=== PATIENT | female | born 1950 | race Caucasian/White ===

== ENCOUNTER 2019-07-13 08:14 | Day surgery (SDC) | payer MEDICARE ==
[~2019-07-13] VITALS: Ht 162.6 cm; Wt 67.1 kg
[~2019-07-13 08:14] MED LIST: ASPI81TA85 PO; COQ-100C5 PO; LIDOCAINE 2% INJ 100 MG/5 ML SDV (FOR ANES.) As Ordered ONE; LISI10TA4 PO; NS 1,000 ML IV ONE; PROPOFOL 500 MG/50 ML VIAL As Ordered ONE; ROSU10TA6 PO; VITA500T PO; fentaNYL 100 MCG/2 ML INJECTION (J3010) As Ordered ONE
--- NOTE | 2019-07-13 08:57 | ROOR ---
Patient Name: Radha Abreu Procedure Date: 07/13/2019 8:39 AM Date of : 1950 Age: 69 Room: [facility] Gender: Female Note Status: Finalized Procedure: Upper Endoscopy + Biopsies Indications: Heartburn, Exclusion of Pickard's esophagus Providers: Wolf Epstein MD Referring MD: Rey Whitman MD Requesting Provider: Medicines: Monitored Anesthesia Care Complications: No immediate complications. Procedure: Pre-Anesthesia Assessment: - The heart rate, respiratory rate, oxygen saturations, blood pressure, adequacy of pulmonary ventilation, and response to care were monitored throughout the procedure. The Endoscope was introduced through the mouth, and advanced to the second part of duodenum. The upper GI endoscopy was accomplished without difficulty. The patient tolerated the procedure well. Findings: The Z-line was regular and was found 40 cm from the incisors. Multiple biopsies were obtained with cold forceps for evaluation to rule out Pickard's Esophagus randomly at the gastroesophageal junction. Localized mildly erythematous mucosa without bleeding was found in the gastric antrum. Biopsies were taken with a cold forceps for Helicobacter pylori testing. The exam of the duodenum was otherwise normal. Impression: - Z-line regular, 40 cm from the incisors. - Erythematous mucosa in the antrum. Biopsied. - Multiple biopsies were obtained at the gastroesophageal junction. - The examination was otherwise normal. Recommendation: - Patient has a contact number available for emergencies. The signs and symptoms of potential delayed complications were discussed with the patient. Return to normal activities tomorrow. Written discharge instructions were provided to the patient. - High fiber diet. - Discharge patient to home. - Follow an antireflux regimen. - Continue present medications. - Await pathology results. - Telephone GI clinic for pathology results in 1 week. - Return to referring physician. - The findings and recommendations were discussed with the patient's family. Wolf Epstein MD Wolf Epstein MD 07/13/2019 8:56:23 AM Electronically signed by Wolf Epstein MD Number of Addenda: 0 Note Initiated On: 07/13/2019 8:39 AM Estimated Blood Loss: Estimated blood loss: none.
--- NOTE | 2019-07-13 09:09 | ROOR ---
Patient Name: Radha Abreu Procedure Date: 07/13/2019 8:40 AM Date of : 1950 Age: 69 Room: [facility] Gender: Female Note Status: Finalized Procedure: Total Colonoscopy to Cecum Indications: Screening for colorectal malignant neoplasm Providers: Wolf Epstein MD Referring MD: Rey Whitman MD Requesting Provider: Medicines: Monitored Anesthesia Care Complications: No immediate complications. Procedure: Pre-Anesthesia Assessment: - The heart rate, respiratory rate, oxygen saturations, blood pressure, adequacy of pulmonary ventilation, and response to care were monitored throughout the procedure. The Colonoscope was introduced through the anus and advanced to the cecum, identified by appendiceal orifice and ileocecal valve. The colonoscopy was performed without difficulty. The patient tolerated the procedure well. The quality of the bowel preparation was excellent. Findings: The perianal and digital rectal examinations were normal. Non-bleeding internal hemorrhoids were found during retroflexion. The hemorrhoids were small and Grade I (internal hemorrhoids that do not prolapse). Multiple small and large-mouthed diverticula were found in the recto-sigmoid colon, sigmoid colon and descending colon. The exam was otherwise without abnormality on direct and retroflexion views. Impression: - Non-bleeding internal hemorrhoids. - Diverticulosis in the recto-sigmoid colon, in the sigmoid colon and in the descending colon. - The examination was otherwise normal on direct and retroflexion views. - No specimens collected. - The exam was otherwise normal to the cecum. Recommendation: - Patient has a contact number available for emergencies. The signs and symptoms of potential delayed complications were discussed with the patient. Return to normal activities tomorrow. Written discharge instructions were provided to the patient. - High fiber diet. - Discharge patient to home. - Continue present medications. - Repeat colonoscopy in 10 years for screening purposes. - Return to referring physician. - The findings and recommendations were discussed with the patient's family. Wolf Epstein MD Wolf Epstein MD 07/13/2019 9:09:30 AM Electronically signed by Wolf Epstein MD Number of Addenda: 0 Note Initiated On: 07/13/2019 8:40 AM Estimated Blood Loss: Estimated blood loss: none.
[2019-07-13 09:30] VITALS: BP 142/65
== END 2019-07-13 09:42 | disposition home or self-care (01) ==
LOC: M OPP 08:14
PROVIDERS: ATTEND Internal Medicine Gastroenterology
DX: Z12.11 Encounter for screening for malignant neoplasm of colon (principal); K64.0 First degree hemorrhoids; K57.30 Diverticulosis of large intestine without perforation or abscess without bleeding; K31.89 Other diseases of stomach and duodenum; R12 Heartburn; Z79.899 Other long term (current) drug therapy; Z79.82 Long term (current) use of aspirin; Z88.0 Allergy status to penicillin; Z88.2 Allergy status to sulfonamides; Z88.8 Allergy status to other drugs, medicaments and biological substances
CPT/HCPCS: 43239; 88305; G0121; J3010